=== PATIENT | male | born 1995 | race Caucasian/White ===

== ENCOUNTER 2025-01-08 23:11 | Emergency (ER) | payer SELFPAY ==
[2025-01-08] MEDS: oxyCODONE 5 MG Tab PO ONE (23:33)
== END 2025-01-09 00:35 | disposition home or self-care (01) ==
LOC: MW.ED 23:11
DX: S63.501A Unspecified sprain of right wrist, initial encounter (principal); F17.210 Nicotine dependence, cigarettes, uncomplicated; W10.9XXA Fall (on) (from) unspecified stairs and steps, initial encounter
CPT/HCPCS: 73110; 99283; A9270

== ENCOUNTER 2025-03-17 11:21 | Emergency (ER) | payer SELFPAY ==
[2025-03-17] MEDS: Lidocaine 4% Patch TOP STA (11:54)
== END 2025-03-17 13:28 | disposition home or self-care (01) ==
LOC: MW.ED 11:21
DX: S09.90XA Unspecified injury of head, initial encounter (principal); M25.512 Pain in left shoulder; Z75.3 Unavailability and inaccessibility of health-care facilities; Z79.899 Other long term (current) drug therapy; W01.0XXA Fall on same level from slipping, tripping and stumbling without subsequent striking against object, initial encounter; Y93.89 Activity, other specified
CPT/HCPCS: 70450; 72125; 72128; 72131; 73030; 99284; A9270; 99283